=== PATIENT | male | born 1940 | race Caucasian/White ===

== ENCOUNTER 2021-09-08 11:58 | Observation (INO) | payer MEDICARE, BC ==
[~2021-09-08] VITALS: Ht 180.3 cm; Wt 104.3 kg
[2021-09-08 13:15] LABS: HEMOGLOBIN 14.1 gm/dl (14.0-17.5); RED BLOOD COUNT 4.89 M/UL (4.20-5.50); WHITE BLOOD COUNT 6.3 K/UL (4.5-11.0)
[2021-09-08 13:41] LABS: BUN/CREATININE RATIO 13 (0-10)
[2021-09-08] MEDS ORDERED: POTASSIUM CHLO20 ME2 PO (17:31)
[2021-09-08] MEDS ORDERED: ELIQUIS2.5 MG PO (17:31)
[2021-09-08] MEDS ORDERED: CARVEDILOL25 MG PO (17:31)
[2021-09-08] MEDS ORDERED: TRAMADOL HCL50 MG PO (17:32)
[2021-09-08] MEDS ORDERED: FAMOTIDINE40 MG PO (17:32)
[2021-09-08] MEDS ORDERED: SYNTHROID50 MCG PO (17:32)
[2021-09-08] MEDS ORDERED: LIPITOR10 MG PO (17:32)
[2021-09-08] MEDS ORDERED: NORVASC5 MG PO (17:33)
[2021-09-08] MEDS ORDERED: EPLERENONE25 MG PO (17:33)
[2021-09-08] MEDS ORDERED: HYDRALAZINE HC100 MG PO (17:33)
[2021-09-08] MEDS ORDERED: GLIPIZIDE ER10 MG PO (17:33)
[2021-09-08] MEDS ORDERED: ASPIRIN EC81 MG PO (17:34)
[2021-09-08] MEDS ORDERED: ALFUZOSIN HCL E10 MG PO (17:34)
[2021-09-08] MEDS ORDERED: TIKOSYN125 MCG PO (21:02)
[2021-09-09 08:35] LABS: RED BLOOD COUNT 4.65 M/UL (4.20-5.50)
[2021-09-09 09:03] LABS: BUN/CREATININE RATIO 13 (0-10)
--- NOTE | 2021-09-09 09:20 | NUR ---
09/09/21 0918 VERIFIED WITH SYEDADARRELL (DAUGHTER IN LAW) HE HAD TIKOSYN LAST YESTERDAY AT 0930
[2021-09-10 04:25] LABS: CANDIDA ALBICANS Not Detected (Negative); CANDIDA KRUSEI Not Detected (Negative); CANDIDA TROPICALIS Not Detected (Negative); ESCHERICHIA COLI Not Detected (Negative); HAEMOPHILUS INFLUENZAE Not Detected (Negative); KLEBSIELLA OXYTOCA Not Detected (Negative); KLEBSIELLA PNEUMONIAE Not Detected (Negative); KPC-CARBAPENEM-RESISTANCE GENE Not Detected (Negative); PROTEUS Not Detected (Negative); PSEUDOMONAS AERUGINOSA Not Detected (Negative); SERRATIA MARCESANS Not Detected (Negative); STAPHYLOCOCCUS AUREUS Not Detected (Negative); STREP AGALACTIAE (GROUP B) Not Detected (Negative); STREP PYOGENES (GROUP A) Not Detected (Negative); STREPTOCOCCUS Not Detected (Negative); vanA/B (VANCOMYCIN RESIST GENE Not Detected (Negative)
[2021-09-10 05:51] LABS: STAPHYLOCOCCUS DETECTED (Negative)
[2021-09-10 06:23] LABS: HEMOGLOBIN 13.3 gm/dl (14.0-17.5); RED BLOOD COUNT 4.68 M/UL (4.20-5.50); WHITE BLOOD COUNT 6.5 K/UL (4.5-11.0)
--- NOTE | 2021-09-10 11:43 | NUR ---
REPORT CALLED TO MAIRA DONALD AT 11:43, [facility].
== END 2021-09-10 12:57 | disposition home or self-care (01) ==
LOC: ER1 11:58 → MED SURG 4 16:13 → CDU 16:13 → MED SURG 4 16:13
PROVIDERS: Physician Assistant; ADMIT Internal Medicine
DX: R41.0 Disorientation, unspecified (principal); E87.6 Hypokalemia; I48.0 Paroxysmal atrial fibrillation; I10 Essential (primary) hypertension; E11.9 Type 2 diabetes mellitus without complications; E03.9 Hypothyroidism, unspecified; N17.9 Acute kidney failure, unspecified; F41.9 Anxiety disorder, unspecified; E86.0 Dehydration; E78.5 Hyperlipidemia, unspecified; Z86.73 Personal history of transient ischemic attack (TIA), and cerebral infarction without residual deficits; Z91.81 History of falling; Z79.01 Long term (current) use of anticoagulants; Z79.82 Long term (current) use of aspirin; Z20.822 Contact with and (suspected) exposure to COVID-19
CPT/HCPCS: ECHO; 36415; 70450; 70551; 71045; 80053; 81001; 82550; 82553; 82962; 83036; 83540; 83550; 83735; 83880; 84439; 84443; 84484; 85025; 85027; 87040; 87077; 87086; 87150; 87186; 93005; 93306; 93880; 96365; 96366; 96374; 96375; 97162; 97166; 99285; G0378; J0360; J0696; J3370; J7030; J7070; U0002